=== PATIENT | male | born 1990 | race Caucasian/White ===

== ENCOUNTER 2021-08-22 15:08 | Emergency (ER) | payer BC ==
[~2021-08-22] VITALS: Ht 167.6 cm; Wt 63.5 kg
[~2021-08-22 15:08] MED LIST: NORCO 5-325 TA1 EACH PO
[2021-08-22] MEDS ORDERED: NASAL DECONGEST30 MG PO (17:01)
== END 2021-08-22 17:30 | disposition home or self-care (01) ==
LOC: ED 15:08
DX: H65.93 Unspecified nonsuppurative otitis media, bilateral (principal); H69.93 Unspecified Eustachian tube disorder, bilateral; F17.200 Nicotine dependence, unspecified, uncomplicated; Z88.2 Allergy status to sulfonamides
CPT/HCPCS: 99282; A9270